=== PATIENT | female | born 1985 | race Caucasian/White ===

== ENCOUNTER 2016-12-10 16:02 | Inpatient (IN) | payer BC ==
[2016-12-10] MEDS ORDERED: Water For Irrigation,Sterile 1,000 ML Container IRR PRN (16:44)
[2016-12-10] MEDS ORDERED: Butorphanol 1 MG/ML SDV IVPUSH PRN (16:44)
[2016-12-10] MEDS ORDERED: Lidocaine 1% 50 ML MDV INJECT PRN (16:44)
[2016-12-10] MEDS ORDERED: Sodium Chloride 0.9% 10 ML Syringe FLUSH PRN (16:44)
[2016-12-10] MEDS ORDERED: Nalbuphine 10 MG/1 ML Vial IVPUSH PRN (16:44)
[2016-12-10] MEDS ORDERED: Sodium Chloride 0.9% 2.5 ML Syringe FLUSH PRN (16:44)
[2016-12-10] MEDS ORDERED: Methylergonovine 0.2 MG/1 ML Amp IM PRN (16:44)
[2016-12-10] MEDS ORDERED: Carboprost Tromethamine 250 MCG/1 ML Amp IM PRN (16:44)
[2016-12-10] MEDS ORDERED: Misoprostol 200 MCG Tab PO PRN (16:44)
[2016-12-10] MEDS ORDERED: Oxytocin/Lactated Ringers 30 UNIT/500 ML BAG IV SCH (16:45)
[2016-12-10] MEDS: Lactated Ringers 1,000 ML IV SCH ×2 (18:22→22:18)
[2016-12-10] MEDS ORDERED: fentaNYL 100 MCG/2 ML SDV ONE (22:43)
[2016-12-10] MEDS ORDERED: Ropivacaine 0.2% 2 MG/ML 20 ML SDV ONE (22:43)
--- NOTE | 2016-12-10 23:30 | PCM.PREANE ---
Preanesthetic Assessment - Anesthesia/Transfusion/Family Hx Anesthesia History: No Prior Anesthesia Family History of Anesthesia Reaction: No - Review of Systems General: No Symptoms Pulmonary: No Symptoms Cardiovascular: No Symptoms Gastrointestinal: No symptoms Neurological: No Symptoms Other: Reports: None - Physical Assessment Height: 1.6 m Weight: 86.183 kg ASA Class: 2 Mental Status: Alert & Oriented x3 Airway Class: Mallampati = 2 Dentition: Reports: Normal Dentition ROM/Head Extension: Full - Lab Values: Laboratory Last Values WBC 15.40 K/uL (4.0-11.0) H 12/10/16 16:59 RBC 4.47 M/uL (4.30-5.90) 12/10/16 16:59 Hgb 12.6 g/dL (12.0-16.0) 12/10/16 16:59 Hct 37.9 % (36.0-46.0) 12/10/16 16:59 MCV 84.8 fL (80.0-98.0) 12/10/16 16:59 MCH 28.2 pg (27.0-32.0) 12/10/16 16:59 MCHC 33.2 g/dL (31.0-37.0) 12/10/16 16:59 RDW Std Deviation 44.9 fl (28.0-62.0) 12/10/16 16:59 RDW Coeff of German 15 % (11.0-15.0) 12/10/16 16:59 Plt Count 307 K/uL (150-400) 12/10/16 16:59 MPV 9.20 fL (7.40-12.00) 12/10/16 16:59 Nucleated RBC % 0.0 /100WBC 12/10/16 16:59 Nucleated RBCs # 0 K/uL 12/10/16 16:59 Blood Type AB POSITIVE 12/10/16 16:59 Antibody Screen NEGATIVE 12/10/16 16:59 - Allergies Allergies/Adverse Reactions: Allergies Allergy/AdvReac Type Severity Reaction Status Date / Time erythromycin base Allergy Hives Verified 12/10/16 16:43 Penicillins Allergy Itching Verified 12/10/16 16:42 - Acknowledgements Anesthesia Type Planned: Epidural Pt an Appropriate Candidate for the Planned Anesthesia: Yes Alternatives and Risks of Anesthesia Discussed w Pt/Guardian: Yes Pt/Guardian Understands and Agrees with Anesthesia Plan: Yes PreAnesthesia Questionnaire - Past Health History Medical/Surgical History: Denies Medical/Surgical History Cardiovascular History: Reports: Other (See Below) Other Cardiovascular History: Treated for some kind of blood virus when she was about 6 years old. Respiratory History: Reports: Asthma Other Respiratory History: Exercise indused and last attack was 2003 Hematologic History: Reports: None (Denies any personal or family hx of bleeding or clotting problems) - SUBSTANCE USE Smoking Status *Q: Never Smoker Second Hand Smoke Exposure: No Recreational Drug Use History: No - CURRENT (IN HOUSE) MEDS Current Meds: Current Medications Butorphanol Tartrate (Stadol) 1 mg IVPUSH Q1H PRN PRN Reason: Pain Last Admin: 12/10/16 21:50 Dose: 1 mg Carboprost Tromethamine (Hemabate Ds) 250 mcg IM ASDIRECTED PRN PRN Reason: Post Hemorrhage Lactated Ringer's (Ringers, Lactated) 1,000 mls @ 150 mls/hr IV ASDIRECTED DIOR Last Admin: 12/10/16 22:18 Dose: 999 mls/hr Oxytocin/Lactated Ringer's (Pitocin In Lr 30 Units/500 Ml) 30 unit in 500 mls @ 2 mls/hr IV TITRATE DIOR; 2 MUNITS/MIN PRN Reason: Protocol Stop: 12/11/16 16:44 Last Admin: 12/10/16 21:38 Dose: 2 munits/min, 2 mls/hr Lidocaine HCl (Xylocaine 1%) 50 ml INJECT .ONCE PRN PRN Reason: Laceration repair Methylergonovine Maleate (Methergine) 0.2 mg IM ASDIRECTED PRN PRN Reason: Post Hemorrhage Misoprostol (Cytotec) 200 mcg PO .ONCE PRN PRN Reason: Post Hemorrhage Sodium Chloride (Saline Flush) 10 ml FLUSH ASDIRECTED PRN PRN Reason: Keep Vein Open Sodium Chloride (Saline Flush) 2.5 ml FLUSH ASDIRECTED PRN PRN Reason: Keep Vein Open Sterile Water (Sterile Water For Irrigation) 1,000 ml IRR ASDIRECTED PRN PRN Reason: delivery Discontinued Medications Fentanyl (Sublimaze) Confirm Administered Dose 100 mcg .ROUTE .STK-MED ONE Stop: 12/10/16 22:44 Ropivacaine/Fentanyl/NS (Fentanyl 2 Mcg-Ropiv 0.2%-Ns) Confirm Administered Dose 100 mls @ as directed .ROUTE .[employer]-MED ONE Stop: 12/10/16 22:43 Nalbuphine HCl (Nubain) 10 mg IVPUSH Q1H PRN PRN Reason: Pain (severe 7-10) Stop: 12/10/16 18:45 Ropivacaine (Naropin 0.2%) Confirm Administered Dose 20 ml .ROUTE .[employer]-MED ONE Stop: 12/10/16 22:44
[2016-12-11] MEDS: Lactated Ringers 1,000 ML IV SCH ×3 (00:15→08:00)
[2016-12-11] MEDS ORDERED: Ondansetron 4 MG/2 ML SDV IVPUSH STA (06:51)
[2016-12-11] MEDS ORDERED: Lanolin 100% Cream 7 GM Tube TOP PRN (10:22)
[2016-12-11] MEDS ORDERED: Bisacodyl 10 MG Supp RECTAL PRN (10:22)
[2016-12-11] MEDS ORDERED: Acetaminophen 500 MG Tab PO PRN (10:22)
[2016-12-11] MEDS ORDERED: Benzocaine/Menthol 20%-0.5% Spray 78 GM Cannister TOP PRN (10:22)
[2016-12-11] MEDS ORDERED: Witch Hazel Medicated Pads 40/Jar TOP PRN (10:22)
[2016-12-11] MEDS ORDERED: oxyCODONE 5 MG Tab PO PRN (10:22)
[2016-12-11] MEDS: Docusate Sodium 100 MG Cap PO PRN (11:06)
[2016-12-11] MEDS: Ibuprofen 800 MG Tab PO PRN ×2 (11:06→17:25)
--- NOTE | 2016-12-11 19:26 | PCM48HPAN ---
Post Anesthesia Note - EVALUATION WITHIN 48HRS OF ANESTHETIC Vital Signs in Normal Range: Yes Patient Participated in Evaluation: Yes Respiratory Function Stable: Yes Airway Patent: Yes Cardiovascular Function Stable: Yes Hydration Status Stable: Yes Pain Control Satisfactory: Yes Nausea and Vomiting Control Satisfactory: Yes Mental Status Recovered: Yes
--- NOTE | 2016-12-11 19:32 | OR ---
SURGEON: Jahaira Banuelos DATE OF PROCEDURE: 12/11/2016 BRIEF PREDELIVERY HISTORY: This is a 31-year-old G1, P0, presented to Labor and Delivery with complaints of leakage of fluid. On exam, the patient had copious clear vaginal fluid from vagina that was significant for gross rupture of membranes. heart tracing was significant for category 1 status and patient was genesis every 2 to 5 minutes at the time of admission. Contractions were noted to be only mild. The patient was given good 5 hours to make cervical change. IV Pitocin augmentation was instituted as the patient's contractions were not uncomfortable and pattern could be very irregular. On initial exam, the patient was noted to be approximately 2 to 3 cm dilated. The patient was started on IV Pitocin approximately 5 hours later. The patient eventually did receive her epidural for analgesia during labor. The patient eventually progressed to completely dilated status and +1 station for which nursing staff started pushing with the patient. The patient was nauseated, so the patient did receive some Zofran, rested, and eventually started maternal expulsive efforts again which were successful. PREOPERATIVE DIAGNOSES: 1. Intrauterine at 39 weeks. 2. GBS negative. 3. Premature rupture of membranes. 4. Induction of labor with IV Pitocin. POSTOPERATIVE DIAGNOSES: 1. Intrauterine at 39 weeks. 2. Delivered status. 3. Midline second-degree perineal laceration. PROCEDURE PERFORMED: 1. Spontaneous-assisted vaginal delivery. 2. Repair of midline second-degree perineal laceration. ANESTHESIA: Epidural. ESTIMATED BLOOD LOSS: 175 mL. FINDINGS: Viable female infant in vertex presentation with score of 8 and 9 at 1 and 5 minutes respectively and weight of 7 pounds 2 ounces. Normal intact placenta with 3-vessel cord. Midline second-degree perineal laceration. SPECIMEN REMOVED: Placenta. CONDITION: Postoperatively, the patient and tolerated the procedure well. COMPLICATIONS: None known. DESCRIPTION OF PROCEDURE: This female under epidural anesthesia delivered a viable female , with score of 8 and 9 at 1 and 5 minutes respectively and weight of 7 pounds 2 ounces. Delivery was via spontaneous-assisted vaginal delivery with infant in vertex presentation. Upon delivery, vertex, the neck was checked. There was no nuchal to be reduce. With gentle downward traction, the anterior shoulder was delivered followed by the body. The was bulb suctioned and on delivery, was very vigorous. The cord was doubly clamped and cut and infant was taken over to the baby warmer at maternal request as mother desired baby to be dried and cleaned prior to holding. Cord blood was collected and sent for analysis. IV Pitocin was given as uterotonic to prevent excessive maternal blood loss and to help expel the placenta. With signs of placental separation with gush of blood, the fundus was massaged, completed along with traction on the umbilical cord, a normal intact placenta with 3-vessel cord was delivered. Of note, the placenta was battledore placenta. After delivery of infant and placenta, the vagina, perineum, and rectum were explored and patient had midline second-degree perineal laceration. The patient was able to feel a little sensation on the perineum so 1% lidocaine plain was used to infiltrate the perineal and vaginal tissues. The 3-0 Vicryl suture and 2-0 Vicryl sutures were used to repair the second-degree perineal laceration. The 2-0 Vicryl suture was used to reapproximate the bulbocavernosus muscles in the midline. The 3-0 Vicryl suture was used to complete the repair of the vagina and perineum in the usual 3-layer fashion for the 2nd degree laceration. Afterwards, the lower uterine segment and vagina was cleared of all clots and debris. The patient was cleansed, pads were changed, and the bed was returned to functioning status. The patient and tolerated the procedure well. Sponge, lap, needle, and instrument counts were correct. TIERRA / LILIANA /[id number] PAULA
[2016-12-12] MEDS: Ibuprofen 800 MG Tab PO PRN (07:36)
[2016-12-12] MEDS: Docusate Sodium 100 MG Cap PO PRN (07:36)
--- NOTE | 2016-12-12 08:24 | PCM.PNPP ---
- General Info Date of Service: 12/12/16 Functional Status: Reports: pain controlled, tolerating diet, ambulating, urinating - Review of Systems General: Denies: Fever, Weakness, Fatigue Pulmonary: Denies: shortness of breath, pleuritic chest pain, cough Cardiovascular: Denies: Chest Pain, Palpitations, Dyspnea on Exertion Gastrointestinal: Denies: Abdominal pain Genitourinary: Denies: dysuria Psychiatric: Reports: no symptoms - General Info Date of Service: 12/12/16 - Patient Data Vital Signs - most recent: Last Vital Signs Temp 36.8 C 12/12/16 04:16 Pulse 84 12/12/16 04:16 Resp 15 12/12/16 04:16 BP 107/56 L 12/12/16 04:16 Pulse Ox 99 12/12/16 04:16 Weight - most recent: 86.183 kg Lab Results - last 24 hrs: Laboratory Results - last 24 hr 12/12/16 Range/Units 05:10 Hgb 10.2 L (12.0-16.0) g/dL Hct 30.9 L (36.0-46.0) % Med Orders - Current: Current Medications Acetaminophen (Tylenol Extra Strength) 500 mg PO Q4H PRN PRN Reason: Pain Benzocaine/Menthol (Dermoplast Pain Relief 20%-0.5% [place]) 78 gm TOP ASDIRECTED PRN PRN Reason: Perineal Comfort Measure Last Admin: 12/11/16 11:05 Dose: 1 applic Bisacodyl (Dulcolax) 10 mg RECTAL .ONCE PRN PRN Reason: Constipation Butorphanol Tartrate (Stadol) 1 mg IVPUSH Q1H PRN PRN Reason: Pain Last Admin: 12/10/16 21:50 Dose: 1 mg Carboprost Tromethamine (Hemabate Ds) 250 mcg IM ASDIRECTED PRN PRN Reason: Post Hemorrhage Docusate Sodium (Colace) 100 mg PO BID PRN PRN Reason: Constipation Last Admin: 12/12/16 07:36 Dose: 100 mg Emollient Ointment (Lansinoh Hpa) 0 gm TOP ASDIRECTED PRN PRN Reason: Sore Nipples Last Admin: 12/11/16 11:05 Dose: 1 applic Lactated Ringer's (Ringers, Lactated) 1,000 mls @ 150 mls/hr IV ASDIRECTED DIOR Last Admin: 12/11/16 08:00 Dose: 150 mls/hr Ibuprofen (Motrin) 800 mg PO Q6H PRN PRN Reason: Pain Last Admin: 12/12/16 07:36 Dose: 800 mg Lidocaine HCl (Xylocaine 1%) 50 ml INJECT .ONCE PRN PRN Reason: Laceration repair Last Admin: 12/11/16 09:40 Dose: 50 ml Methylergonovine Maleate (Methergine) 0.2 mg IM ASDIRECTED PRN PRN Reason: Post Hemorrhage Misoprostol (Cytotec) 200 mcg PO .ONCE PRN PRN Reason: Post Hemorrhage Oxycodone HCl (Oxycodone) 5 mg PO Q2H PRN PRN Reason: Pain Sodium Chloride (Saline Flush) 10 ml FLUSH ASDIRECTED PRN PRN Reason: Keep Vein Open Sodium Chloride (Saline Flush) 2.5 ml FLUSH ASDIRECTED PRN PRN Reason: Keep Vein Open Sterile Water (Sterile Water For Irrigation) 1,000 ml IRR ASDIRECTED PRN PRN Reason: delivery Last Admin: 12/11/16 09:40 Dose: 1,000 ml [place] (Tucks) 1 pad TOP ASDIRECTED PRN PRN Reason: comfort care Discontinued Medications Fentanyl (Sublimaze) Confirm Administered Dose 100 mcg .ROUTE .STK-MED ONE Stop: 12/10/16 22:44 Last Admin: 12/11/16 03:10 Dose: Not Given Oxytocin/Lactated Ringer's (Pitocin In Lr 30 Units/500 Ml) 30 unit in 500 mls @ 2 mls/hr IV TITRATE DIOR; 2 MUNITS/MIN PRN Reason: Protocol Stop: 12/11/16 16:44 Last Titration: 12/11/16 03:06 Dose: 4 munits/min, 4 mls/hr Ropivacaine/Fentanyl/NS (Fentanyl 2 Mcg-Ropiv 0.2%-Ns) Confirm Administered Dose 100 mls @ as directed .ROUTE .STK-MED ONE Stop: 12/10/16 22:43 Last Admin: 12/11/16 03:09 Dose: Not Given Nalbuphine HCl (Nubain) 10 mg IVPUSH Q1H PRN PRN Reason: Pain (severe 7-10) Stop: 12/10/16 18:45 Ondansetron HCl (Zofran) 4 mg IVPUSH ONETIME STA Stop: 12/11/16 06:52 Last Admin: 12/11/16 07:04 Dose: 4 mg Ropivacaine (Naropin 0.2%) Confirm Administered Dose 20 ml .ROUTE .STK-MED ONE Stop: 12/10/16 22:44 Last Admin: 12/11/16 03:10 Dose: Not Given - Infant Interaction Disposition, : [place] in Room with Family Infant Interaction: Holding Infant Feeding: Attempted ; Nursed Fair/Poor Support Person: - Recovery Exam Fundal Tone: Firm Fundal Level: At Umbilicus Fundal Placement: Midline Lochia Amount: Small Lochia Color: Rubra/Red Perineum Description: Intact, Minimal Bruising/Swelling Episiotomy/Laceration: Approximated Bladder Status: Voiding Urinary Elimination: Voided - Exam General: alert, oriented Neck: supple Lungs: Clear to auscultation, Normal respiratory effort Cardiovascular: Regular Rate, Regular Rhythm Abdomen: bowel sounds present, soft, no tenderness, no distension Psy/Mental Status: alert, normal affect, normal mood - Problem List & Annotations (1) Vaginal delivery SNOMED Code(s): 711449955 Code(s): O80 - ENCOUNTER FOR FULL-TERM UNCOMPLICATED DELIVERY Status: Acute Current Visit: Yes - Problem List Review Problem List Initiated/Reviewed/Updated: Yes - Assessment Assessment:: PPD#1 from . Minimal pain and lochia. Breast feeding well. Discharge home today. - Plan Plan:: Discharge home today. Nothing in the vagina for 6 weeks. Continue PNV while breast feeding. Can use OTC ibuprofen/tylenol as needed for pain. Instructed patient to call if she develops fever greater than 101 or bleeding through a large pad an hour. F/U with [facility] in 6 weeks.
[2016-12-12 14:48] VITALS: BP 91/50
== END 2016-12-12 12:55 | disposition home or self-care (01) | DRG 560 ==
LOC: MW.OBCHECK 16:02 → MW.OB 16:04 → MW.OBCHECK 16:44 → MW.OB 16:44 → OBSVTOIN 12-11 09:07 → MW.OB 12-11 12:15
PROVIDERS: ADMIT Obstetrics & Gynecology; ATTEND Obstetrics & Gynecology
PROC: 10E0XZZ Delivery of Products of Conception, External Approach (ICD-10-PCS; principal; 2016-12-11)
PROC: 0KQM0ZZ Repair Perineum Muscle, Open Approach (ICD-10-PCS; 2016-12-11)
PROC: 00HU33Z Insertion of Infusion Device into Spinal Canal, Percutaneous Approach (ICD-10-PCS; 2016-12-11)
PROC: 3E0R3CZ (ICD-10-PCS; 2016-12-11)
DX: O42.92 Full-term premature rupture of membranes, unspecified as to length of time between rupture and onset of labor (principal); Z3A.39 39 weeks gestation of pregnancy; Z37.0 Single live birth; O70.1 Second degree perineal laceration during delivery
CPT/HCPCS: 01967; 01996; 36415; 59025; 85014; 85018; 85027; 86850; 86900; 86901; A9270-GY; J0595; J2405; J7120

== ENCOUNTER 2017-09-07 04:21 | Emergency (ER) | payer BC ==
[2017-09-07] MEDS ORDERED: Sodium Chloride 0.9% 2.5 ML Syringe FLUSH PRN (04:47)
[2017-09-07] MEDS ORDERED: Sodium Chloride 0.9% 10 ML Syringe FLUSH PRN (04:47)
[2017-09-07] MEDS ORDERED: Alum Hydrox/Mag Hydrox/Simeth 15 ML, Metoclopramide 5 MG, Lidocaine 2% 5 ML PO ONE ×3 (04:47)
[2017-09-07] MEDS ORDERED: Sodium Chloride 0.9% 1,000 ML IV ONE (04:55)
--- NOTE | 2017-09-07 04:55 | EDM.PDOC ---
<Yang Saunders - Last Filed: 09/07/17 07:19> ED HPI GENERAL MEDICAL PROBLEM - General Chief Complaint: Chest Pain Stated Complaint: CHEST PAIN Time Seen by Provider: 09/07/17 04:35 Source of Information: Reports: Patient History Limitations: Reports: No Limitations - History of Present Illness INITIAL COMMENTS - FREE TEXT/NARRATIVE: HISTORY AND PHYSICAL: History of present illness: [32-year-old female presenting to the emergency department with a chief complaint of chest pain 1 hour with no significant past medical history. Patient states that she will was woken from sleep with substernal chest pain that was sharp in nature and lasted for approximately 1 hour. States that she also had associated left arm "tingling and numbness". Chest pain did not radiate into her jaw. She did have some associated shortness of breath as well as nausea but did not throw up. States it after approximately an hour she was able take 2 Tylenol and this pain seemed to dissipate on its own. She did feel somewhat "flushed". Patient states that she's never had anything like this happen before. On the day before she does admit to some abdominal cramping that she called "gas" that she was able to pass. She denies any significant heartburn other than when she was . She did deliver a baby approximately 9 months ago. Otherwise she is healthy in has just had a cold with runny noses and dry cough. She denies any fever, chills, malaise, diarrhea , sore throat, ear pain, abdominal pain. She has not traveled recently and denies any leg pain. ] Review of systems: As per history of present illness and below otherwise all systems reviewed and negative. Past medical history: As per history of present illness and as reviewed below otherwise noncontributory. Surgical history: As per history of present illness and as reviewed below otherwise noncontributory. Social history: No reported history of drug or alcohol abuse. Family history: As per history of present illness and as reviewed below otherwise noncontributory. Physical exam: HEENT: Atraumatic, normocephalic, pupils reactive, negative for conjunctival pallor or scleral icterus, mucous membranes moist, throat clear, neck supple, nontender, trachea midline. Lungs: Clear to auscultation, breath sounds equal bilaterally, chest nontender. Heart: S1S2, regular, negative for clicks, rubs, or JVD. Abdomen: Soft, nondistended, nontender. Negative for masses or hepatosplenomegaly. Negative for costovertebral tenderness. Pelvis: Stable nontender. Genitourinary: Deferred. Rectal: Deferred. Extremities: Atraumatic, negative for cords or calf pain. Neurovascular unremarkable. Neuro: Awake, alert, oriented. Cranial nerves II through XII unremarkable. Cerebellum unremarkable. Motor and sensory unremarkable throughout. Exam nonfocal. Diagnostics: [CBC, CMP, d-dimer, hCG, troponin, UA, EKG, chest x-ray] Therapeutics: [GI cocktail, IV normal saline, famotidine] Impression: [] Plan: [O7 [address] Bennett[address] chest Pain Score (Numeric/FACES): 4 - Related Data Allergies Allergy/AdvReac Type Severity Reaction Status Date / Time erythromycin base Allergy Hives Verified 09/07/17 04:35 Penicillins Allergy Itching Verified 09/07/17 04:35 Home Meds: Home Meds . [No Known Home Meds] 09/07/17 [History] Past Medical History - Past Health History Medical/Surgical History: Denies Medical/Surgical History Cardiovascular History: Reports: Other (See Below) Other Cardiovascular History: Treated for some kind of blood virus when she was about 6 years old. Respiratory History: Reports: Asthma Other Respiratory History: Exercise indused and last attack was 2003 Psychiatric History: Reports: None Hematologic History: Reports: None - Infectious Disease History Infectious Disease History: Reports: None Social & Family History - Family History Family Medical History: Noncontributory - Tobacco Use Smoking Status *Q: Never Smoker Second Hand Smoke Exposure: No - Caffeine Use Caffeine Use: Reports: None - Recreational Drug Use Recreational Drug Use: No Course - Vital Signs Last Recorded V/S: Last Vital Signs Temp 96.3 F 09/07/17 04:35 Pulse 84 09/07/17 04:35 Resp 14 09/07/17 04:35 BP 109/71 09/07/17 04:35 Pulse Ox 99 09/07/17 04:35 - Orders/Labs/Meds Orders: Active Orders 24 hr Category Date Time Status EKG Documentation Completion [RC] STAT Care 09/07/17 04:47 Active Abdomen Ltd [US] Stat Exams 09/07/17 07:47 Taken Abdomen Pelvis w wo Cont [CT] Stat Exams 09/07/17 06:14 Taken Chest 1V Frontal [CR] Stat Exams 09/07/17 04:47 Taken Sodium Chloride 0.9% [Saline Flush] Med 09/07/17 04:47 Active 10 ml FLUSH ASDIRECTED PRN Sodium Chloride 0.9% [Saline Flush] Med 09/07/17 04:47 Active 2.5 ml FLUSH ASDIRECTED PRN Saline Lock Insert [OM.PC] Stat Oth 09/07/17 04:47 Ordered Medication Orders Sodium Chloride (Saline Flush) 10 ml FLUSH ASDIRECTED PRN PRN Reason: Keep Vein Open Sodium Chloride (Saline Flush) 2.5 ml FLUSH ASDIRECTED PRN PRN Reason: Keep Vein Open Labs: Laboratory Tests 09/07/17 09/07/17 09/07/17 Range/Units 04:53 04:53 04:53 WBC 13.31 H (4.0-11.0) K/uL RBC 4.87 (4.30-5.90) M/uL Hgb 14.2 (12.0-16.0) g/dL Hct 41.5 (36.0-46.0) % MCV 85.2 (80.0-98.0) fL MCH 29.2 (27.0-32.0) pg MCHC 34.2 (31.0-37.0) g/dL RDW Std Deviation 40.8 (28.0-62.0) fl RDW Coeff of German 13 (11.0-15.0) % Plt Count 365 (150-400) K/uL MPV 8.60 (7.40-12.00) fL Neut % (Auto) 80.9 H (48.0-80.0) % Lymph % (Auto) 11.9 L (16.0-40.0) % [place] % (Auto) 6.2 (0.0-15.0) % Eos % (Auto) 0.5 (0.0-7.0) % Baso % (Auto) 0.5 (0.0-1.5) % Neut # (Auto) 10.8 H (1.4-5.7) K/uL Lymph # (Auto) 1.6 (0.6-2.4) K/uL [place] # (Auto) 0.8 (0.0-0.8) K/uL Eos # (Auto) 0.1 (0.0-0.7) K/uL Baso # (Auto) 0.1 (0.0-0.1) K/uL Nucleated RBC % 0.0 /100WBC Nucleated RBCs # 0 K/uL D-Dimer, Quantitative 0.35 (0.0-0.52) mg/LFEU Sodium 139 (136-146) mmol/L Potassium 3.6 (3.5-5.1) mmol/L Chloride 106 (98-110) mmol/L Carbon Dioxide 23 (21-31) mmol/L BUN 21 (6.0-23.0) mg/dL Creatinine 0.8 (0.6-1.5) mg/dL Est Cr Clr Drug Dosing 87.18 mL/min Estimated GFR (MDRD) > 60.0 ml/min Glucose 110 (60-110) mg/dL Calcium 9.6 (8.8-10.8) mg/dL Total Bilirubin 0.8 (0.1-1.5) mg/dL AST 245 H (5-40) IU/L ALT 130 H (8-54) IU/L Alkaline Phosphatase 95 (40-150) Troponin I < 0.10 (0.0-0.29) NG/ML Total Protein 7.9 (6.0-8.0) g/dL Albumin 4.3 (3.5-5.0) g/dL Globulin 3.6 H (2.0-3.5) g/dL Albumin/Globulin Ratio 1.2 L (1.3-2.8) Lipase 42 (7-80) U/L Urine Color Urine Appearance Urine pH (5.0-8.0) Ur Specific [place] (1.001-1.035) Urine Protein (NEGATIVE) mg/dL Urine Glucose (UA) (NEGATIVE) mg/dL Urine Ketones (NEGATIVE) mg/dL Urine Occult Blood (NEGATIVE) Urine Nitrite (NEGATIVE) Urine Bilirubin (NEGATIVE) Urine Urobilinogen (<2.0) EU/dL Ur Leukocyte Esterase (NEGATIVE) Urine RBC (0-2/HPF) Urine WBC (0-5/HPF) Ur Epithelial Cells (NONE-FEW) Amorphous Sediment (NEGATIVE) Urine Bacteria (NEGATIVE) Urine HCG, Qual (NEGATIVE) 09/07/17 09/07/17 Range/Units 05:10 05:10 WBC (4.0-11.0) K/uL RBC (4.30-5.90) M/uL Hgb (12.0-16.0) g/dL Hct (36.0-46.0) % MCV (80.0-98.0) fL MCH (27.0-32.0) pg MCHC (31.0-37.0) g/dL RDW Std Deviation (28.0-62.0) fl RDW Coeff of German (11.0-15.0) % Plt Count (150-400) K/uL MPV (7.40-12.00) fL Neut % (Auto) (48.0-80.0) % Lymph % (Auto) (16.0-40.0) % [place] % (Auto) (0.0-15.0) % Eos % (Auto) (0.0-7.0) % Baso % (Auto) (0.0-1.5) % Neut # (Auto) (1.4-5.7) K/uL Lymph # (Auto) (0.6-2.4) K/uL [place] # (Auto) (0.0-0.8) K/uL Eos # (Auto) (0.0-0.7) K/uL Baso # (Auto) (0.0-0.1) K/uL Nucleated RBC % /100WBC Nucleated RBCs # K/uL D-Dimer, Quantitative (0.0-0.52) mg/LFEU Sodium (136-146) mmol/L Potassium (3.5-5.1) mmol/L Chloride (98-110) mmol/L Carbon Dioxide (21-31) mmol/L BUN (6.0-23.0) mg/dL Creatinine (0.6-1.5) mg/dL Est Cr Clr Drug Dosing mL/min Estimated GFR (MDRD) ml/min Glucose (60-110) mg/dL Calcium (8.8-10.8) mg/dL Total Bilirubin (0.1-1.5) mg/dL AST (5-40) IU/L ALT (8-54) IU/L Alkaline Phosphatase (40-150) Troponin I (0.0-0.29) NG/ML Total Protein (6.0-8.0) g/dL Albumin (3.5-5.0) g/dL Globulin (2.0-3.5) g/dL Albumin/Globulin Ratio (1.3-2.8) Lipase (7-80) U/L Urine Color YELLOW Urine Appearance HAZY Urine pH 8.5 H (5.0-8.0) Ur Specific [place] 1.015 (1.001-1.035) Urine Protein 30 (NEGATIVE) mg/dL Urine Glucose (UA) NEGATIVE (NEGATIVE) mg/dL Urine Ketones NEGATIVE (NEGATIVE) mg/dL Urine Occult Blood NEGATIVE (NEGATIVE) Urine Nitrite NEGATIVE (NEGATIVE) Urine Bilirubin NEGATIVE (NEGATIVE) Urine Urobilinogen 1.0 (<2.0) EU/dL Ur Leukocyte Esterase NEGATIVE (NEGATIVE) Urine RBC 1-2 (0-2/HPF) Urine WBC 1-2 (0-5/HPF) Ur Epithelial Cells FEW (NONE-FEW) Amorphous Sediment LIGHT (NEGATIVE) Urine Bacteria FEW (NEGATIVE) Urine HCG, Qual NEGATIVE (NEGATIVE) Meds: Medications Generic Name Dose Route Start Last Admin Trade Name Freq PRN Reason Stop Dose Admin Sodium Chloride 10 ml 09/07/17 04:47 Saline Flush FLUSH ASDIRECTED PRN Keep Vein Open Sodium Chloride 2.5 ml 09/07/17 04:47 Saline Flush FLUSH ASDIRECTED PRN Keep Vein Open Discontinued Medications Generic Name Dose Route Start Last Admin Trade Name Freq PRN Reason Stop Dose Admin Al Hydroxide/Mg Hydroxide 15 0 ml 09/07/17 04:47 09/07/17 05:29 ml/ Metoclopramide HCl 5 mg/ PO 09/07/17 04:48 1 each Lidocaine HCl 5 ml ONETIME ONE Administration Famotidine 20 mg 09/07/17 04:56 09/07/17 05:28 Pepcid IVPUSH 09/07/17 04:57 20 mg ONETIME ONE Administration Sodium Chloride 1,000 mls @ 999 mls/hr 09/07/17 04:55 09/07/17 05:25 Normal Saline IV 09/07/17 05:55 999 mls/hr STAT ONE Administration Iopamidol 100 ml 09/07/17 06:40 02/15/18 06:42 Isovue Multipack-370 (76%) IVPUSH 09/07/17 06:41 100 ml ONETIME STA Administration Departure - Departure Time of Disposition: 07:19 Disposition: Home, Self-Care 01 Clinical Impression: Cholelithiasis - Discharge Information Referrals: PCP,None [Primary Care Provider] - Forms: ED Department Discharge Additional Instructions: [place] diet as discussed Return if symptoms persist or worsen Schedule appointment general surgery Dr. Crawford, his expecting your call and plans to schedule your visit for this afternoon or tomorrow morning [facility] - General Surgery Professional [address], [address] [place] [address] The following information is given to patients seen in the emergency department who are being discharged to home. This information is to outline your options for follow-up care. We provide all patients seen in our emergency department with a follow-up referral. The need for follow-up, as well as the timing and circumstances, are variable depending upon the specifics of your emergency department visit. If you don't have a primary care physician on staff, we will provide you with a referral. We always advise you to contact your personal physician following an emergency department visit to inform them of the circumstance of the visit and for follow-up with them and/or the need for any referrals to a consulting specialist. The emergency department will also refer you to a specialist when appropriate. This referral assures that you have the opportunity for follow-up care with a specialist. All of these measure are taken in an effort to provide you with optimal care, which includes your follow-up. Under all circumstances we always encourage you to contact your private physician who remains a resource for coordinating your care. When calling for follow-up care, please make the office aware that this follow-up is from your recent emergency room visit. If for any reason you are refused follow-up, please contact the [facility] emergency department at and asked to speak to the emergency department charge nurse. - My Orders Last 24 Hours: My Active Orders 09/07/17 07:47 Abdomen Ltd [US] Stat - Assessment/Plan Last 24 Hours: My Active Orders 09/07/17 07:47 Abdomen Ltd [US] Stat <Tra Hernandez - Last Filed: 09/07/17 09:03> ED HPI GENERAL MEDICAL PROBLEM - History of Present Illness INITIAL COMMENTS - FREE TEXT/NARRATIVE: Reviewed the above information and agree with above Patient was eating steak shrimp and salad with dressing on this just a couple hours prior to the symptoms developing, have taken the patient in sign out for continued management to follow CT and ultimately ordered an ultrasound of the gallbladder Patient has been pain-free since my arrival she rates 0 out of 10 however on deep palpation right upper quadrant I can reproduce some discomfort No fever nausea vomiting chills sweats no chest pain shortness breath headache dizziness palpitation no bowel or urine symptoms Gen. no acute distress whatsoever HEENT grossly within normal limits Chest clear CV regular rate and rhythm Abdomen tender on deep palpation right upper quadrant otherwise benign with good bowel sounds Extremities full range of motion strength 5 out of 5 no edema [employer] alert nonfocal Lab as below CT abdomen pelvis no acute process Ultrasound right upper quadrant significant for cholelithiasis Assessment cholelithiasis Plan Discussed with Dr. Jamil he will see the patient in clinic further management pending his visit with patient Otherwise bland diet in the interim Patient will call Dr. Jamil and schedule appointment for this afternoon or tomorrow morning for continued management ED ROS GENERAL - Review of Systems Review Of Systems: ROS reveals no pertinent complaints other than HPI. ED EXAM, GENERAL - Physical Exam Exam: See Below Departure - Departure Condition: Good
[2017-09-07] MEDS ORDERED: Famotidine 20 MG/2 ML SDV IVPUSH ONE (04:56)
[2017-09-07 05:34] LABS: CHLORIDE,CL 106 mmol/L (98-110); SODIUM,NA 139 mmol/L (136-146)
[2017-09-07] MEDS ORDERED: Iopamidol 755 MG/ML 500 ML Multipack Bottle IVPUSH STA (06:40)
--- NOTE | 2017-09-07 09:41 | CR ---
EXAM DATE: 09/07/17 PATIENT'S AGE: 32 Patient: TITO HARMON Facility: [place], [place] Site . Site : 1985 Study: XRay Chest [id number]/15/2018 5:34:41 AM Ordering Physician: Chip Soria Final Report: INDICATION: Chest pain, shortness of breath TECHNIQUE: Chest radiograph 1 view COMPARISON: None FINDINGS: Mediastinum: The heart silhouette is normal in size and morphology. The mediastinum is normal in appearance. Lungs: Both lungs are unremarkable in appearance. No sign of pleural effusion seen. No pneumothorax is identified. Bones and soft tissue: Unremarkable for age. IMPRESSION: 1. No acute cardiopulmonary disease is seen. Dictated by: Efra Goode MD @ 09/07/2017 05:38:51 (Electronic Signature) Report Signed by Proxy. [facility]
[2017-09-07 09:46] VITALS: BP 116/68
--- NOTE | 2017-09-07 09:57 | CT ---
EXAM DATE: 09/07/17 PATIENT'S AGE: 32 Patient: TITO HARMON Facility: [place], [place] Site . Site : 1985 Study: CT Abdomen/Pelvis W/ and W/O Cont [id number]/15/2018 6:42:06 AM Ordering Physician: Chip Soria Final Report: INDICATION: General abd pain, elevated white count TECHNIQUE: CT scan of the abdomen and pelvis with noncontrast and postcontrast images obtained. 100 cc of Isovue-370 given intravenously. FINDINGS: The lung bases are unremarkable. No focal abnormalities identified in the visualized portions of the liver, spleen, pancreas, and adrenal glands. 8 mm cyst in the interpolar region of the right kidney. Single nonobstructing nephroliths in both kidneys. The kidneys are otherwise unremarkable. No hydronephrosis. No obstructing uroliths. The GI tract is incompletely distended but shows no gross abnormalities. The stomach and GE junction are not well assessed. Normal appendix. No retroperitoneal, pelvic sidewall, or mesenteric adenopathy. IMPRESSION: No acute abnormalities of the abdomen or pelvis identified. Dictated by Alfa Dickerson MD @ 09/07/2017 7:06:21 AM Dictated by: Alfa Dickerson MD @ 09/07/2017 07:06:30 (Electronic Signature) Report Signed by Proxy. [facility]
--- NOTE | 2017-09-07 09:58 | US ---
EXAM DATE: 09/07/17 PATIENT'S AGE: 32 Patient: TITO HARMON Facility: [place], [place] Site . Site : 1985 Study: US Abdomen [id number]/15/2018 8:14:46 AM Ordering Physician: Chip Soria Final Report: INDICATION: PAIN COMPARISON: CT scan of the abdomen and pelvis dated 07 September 2017. FINDINGS: An abdominal ultrasound shows normal size, contour, echogenicity of the liver. No bile duct dilation with the common bile duct measuring 2 mm. Gallstones in an otherwise normal-appearing gallbladder. Negative sonographic Mata`s sign. No abnormalities identified in the visualized portions of the pancreatic head and body and right kidney. No right-sided hydronephrosis. IMPRESSION: Cholelithiasis with no sonographic evidence of cholecystitis. Dictated by Alfa Dickerson MD @ 09/07/2017 8:26:49 AM Dictated by: Alfa Dickerson MD @ 09/07/2017 08:26:57 (Electronic Signature) Report Signed by Proxy. [facility]
== END 2017-09-07 09:40 | disposition home or self-care (01) ==
LOC: MW.ED 04:21
DX: K80.20 Calculus of gallbladder without cholecystitis without obstruction (principal); Z88.0 Allergy status to penicillin; Z88.1 Allergy status to other antibiotic agents
CPT/HCPCS: 36415; 71045; 74178; 76705; 80053; 81001; 81025; 83690; 84484; 85025; 85379; 93005; 96361; 96374; 99285; A9270; J7040; Q9967; 99284

== ENCOUNTER 2019-09-07 01:48 | Inpatient (IN) | payer BC ==
[~2019-09-07 01:48] MED LIST: Butorphanol 1 MG/ML SDV IVPUSH PRN; Carboprost Tromethamine 250 MCG/1 ML Amp IM PRN; Lactated Ringers 1,000 ML IV SCH; Lidocaine 1% 50 ML MDV INJECT PRN; Methylergonovine 0.2 MG/1 ML Amp IM PRN; Misoprostol 200 MCG Tab PO PRN; Nalbuphine 10 MG/1 ML Vial IVPUSH PRN; Oxytocin/0.9 % Sodium Chloride 30 UNIT/500 ML BAG IV SCH; Sodium Chloride 0.9% 2.5 ML Syringe FLUSH PRN; Tranexamic Acid 1,000 MG in Sodium Chloride 0.9% 100 ML IV PRN; Water For Irrigation,Sterile 1,000 ML Container IRR PRN
[2019-09-07] MEDS ORDERED: Oxytocin/0.9 % Sodium Chloride 30 UNIT/500 ML BAG ONE (01:58)
[2019-09-07] MEDS ORDERED: Lidocaine 1% 50 ML MDV ONE (02:25)
[2019-09-07] MEDS ORDERED: Morphine 10 MG/ML Syringe IVPUSH ONE (02:30)
[2019-09-07] MEDS ORDERED: Morphine 2 MG/ML SYRINGE ONE (02:31)
[2019-09-07] MEDS ORDERED: Morphine 4 MG/ML Syringe ONE (02:31)
[2019-09-07] MEDS ORDERED: Sodium Chloride 0.9% 10 ML SDV IV PRN (02:32)
[2019-09-07] MEDS ORDERED: Sodium Chloride 0.9% 10 ML Syringe FLUSH PRN (02:32)
--- NOTE | 2019-09-07 03:27 | PCM.DEL ---
L & D Note - General Info Date of Service: 09/07/19 Mother's Due Date: 09/10/19 - Delivery Note Labor: Spontaneous Delivery Method: Spontaneous Vaginal Delivery-Single Nuchal Cord: None Anesthesia Type: Local Anesthetic: Lidocaine (Xylocaine) 1% Plain Laceration: 2nd Degree Suture size: 2-0 (monocryl) Placenta: Intact Cord: 3 Vessels Estimated Blood Loss: 300 Resuscitation Needed: No Score 1 min: 6 Score 5 min: 8 Delivery Comments (Free Text/Narrative):: Delivery before my arrival Live male delivered at 206am , Weight 3320g 6/8 - General Info Date of Service: 09/07/19 - Patient Data Lab Results Last 24 Hours: Laboratory Results - last 24 hr 09/07/19 09/07/19 Range/Units 02:30 02:30 WBC 12.11 H (4.0-11.0) K/uL RBC 5.12 (4.30-5.90) M/uL Hgb 13.9 (12.0-16.0) g/dL Hct 41.7 (36.0-46.0) % MCV 81.4 (80.0-98.0) fL MCH 27.1 (27.0-32.0) pg MCHC 33.3 (31.0-37.0) g/dL RDW Std Deviation 43.0 (28.0-62.0) fl RDW Coeff of German 15 (11.0-15.0) % Plt Count 308 (150-400) K/uL MPV 9.10 (7.40-12.00) fL Nucleated RBC % 0.0 /100WBC Nucleated RBCs # 0 K/uL Blood Type AB POSITIVE Antibody Screen NEGATIVE Med Orders - Current: Current Medications Butorphanol Tartrate (Stadol) 1 mg IVPUSH Q1H PRN PRN Reason: Pain Carboprost Tromethamine (Hemabate Ds) 250 mcg IM ASDIRECTED PRN PRN Reason: Post Hemorrhage Lactated Ringer's (Ringers, Lactated) 1,000 mls @ 150 mls/hr IV ASDIRECTED DIOR Oxytocin/Sodium Chloride (Oxytocin 30 Unit/500 Ml-Ns) 30 unit in 500 mls @ 999 mls/hr IV TITRATE DIOR Tranexamic Acid 1,000 mg/ (Sodium Chloride) 110 mls @ 660 mls/hr IV ONETIME PRN PRN Reason: Bleeding Lidocaine HCl (Xylocaine 1%) 50 ml INJECT ONETIME PRN PRN Reason: Laceration repair Methylergonovine Maleate (Methergine) 0.2 mg IM ASDIRECTED PRN PRN Reason: Post Hemorrhage Misoprostol (Cytotec) 200 mcg PO ONETIME PRN PRN Reason: Post Hemorrhage Nalbuphine HCl (Nubain) 10 mg IVPUSH Q1H PRN PRN Reason: Pain (severe 7-10) Sodium Chloride (Saline Flush) 10 ml FLUSH ASDIRECTED PRN PRN Reason: Keep Vein Open Sodium Chloride (Saline Flush) 2.5 ml FLUSH ASDIRECTED PRN PRN Reason: Keep Vein Open Sodium Chloride (Normal Saline) 10 ml IV ASDIRECTED PRN PRN Reason: IV Use Sterile Water (Sterile Water For Irrigation) 1,000 ml IRR ASDIRECTED PRN PRN Reason: delivery Discontinued Medications Oxytocin/Sodium Chloride (Oxytocin 30 Unit/500 Ml-Ns) Confirm Administered Dose 30 unit in 500 mls @ as directed .ROUTE .STK-MED ONE Stop: 09/07/19 01:59 Lidocaine HCl (Xylocaine 1%) Confirm Administered Dose 50 ml .ROUTE .STK-MED ONE Stop: 09/07/19 02:26 Morphine Sulfate (Morphine) Confirm Administered Dose 2 mg .ROUTE .STK-MED ONE Stop: 09/07/19 02:32 Morphine Sulfate (Morphine) Confirm Administered Dose 4 mg .ROUTE .STK-MED ONE Stop: 09/07/19 02:32 - Problem List & Annotations (1) Vaginal delivery SNOMED Code(s): 228013119 Code(s): O80 - ENCOUNTER FOR FULL-TERM UNCOMPLICATED DELIVERY Status: Acute Current Visit: No - Problem List Review Problem List Initiated/Reviewed/Updated: Yes - My Orders Last 24 Hours: My Active Orders 09/07/19 01:40 Patient Status [ADT] Routine Heart Tones [RC] CONTINUOUS Non Stress Test [RC] PER UNIT ROUTINE May Shower [RC] ASDIRECTED Notify Provider [RC] PRN Up ad Tara [RC] ASDIRECTED Vaginal Exam [RC] PRN Vital Signs [RC] PER UNIT ROUTINE Butorphanol [Stadol] 1 mg IVPUSH Q1H PRN Carboprost Tromethamine [Hemabate DS] 250 mcg IM ASDIRECTED PRN Lactated Ringers [Ringers, Lactated] 1,000 ml IV ASDIRECTED Lidocaine 1% [Xylocaine 1%] 50 ml INJECT ONETIME PRN Methylergonovine [Methergine] 0.2 mg IM ASDIRECTED PRN Nalbuphine [Nubain] 10 mg IVPUSH Q1H PRN Oxytocin/0.9 % Sodium Chloride [Oxytocin 30 Unit/500 ML-NS] 30 unit in 500 ml IV TITRATE Sodium Chloride 0.9% [Saline Flush] 2.5 ml FLUSH ASDIRECTED PRN Tranexamic Acid [Cyklokapron] 1,000 mg Sodium Chloride 0.9% [Normal Saline] 100 ml IV ONETIME Water For Irrigation,Sterile [Sterile Water for Irrigation] 1,000 ml IRR ASDIRECTED PRN miSOPROStoL [Cytotec] 200 mcg PO ONETIME PRN Scalp Electrode [WOMSER] Per Unit Routine Peripheral IV Insertion Adult [OM.PC] Routine 09/07/19 02:30 RPR (SYPHILIS SERO) W/ RFLX [REF] Routine 09/07/19 02:32 Sodium Chloride 0.9% [Normal Saline] 10 ml IV ASDIRECTED PRN Sodium Chloride 0.9% [Saline Flush] 10 ml FLUSH ASDIRECTED PRN Resuscitation Status Routine
[2019-09-07] MEDS ORDERED: oxyCODONE 5 MG Tab PO PRN (03:30)
[2019-09-07] MEDS ORDERED: Lanolin 100% Cream 7 GM Tube TOP PRN (03:30)
[2019-09-07] MEDS ORDERED: Acetaminophen 500 MG Tab PO PRN ×2 (03:30)
[2019-09-07] MEDS ORDERED: Bisacodyl 10 MG Supp RECTAL PRN (03:30)
[2019-09-07] MEDS ORDERED: Ibuprofen 400 MG Tab PO PRN (03:30)
[2019-09-07] MEDS ORDERED: Benzocaine/Menthol 20%-0.5% Spray 78 GM Cannister TOP PRN (03:30)
[2019-09-07] MEDS ORDERED: Witch Hazel Medicated Pads 40/Jar TOP PRN (03:30)
[2019-09-07] MEDS: Ibuprofen 800 MG Tab PO PRN ×3 (08:01→21:39)
--- NOTE | 2019-09-07 13:35 | OR ---
SURGEON: BARBIE BENTLEY DATE OF PROCEDURE: 09/07/2019 PREOPERATIVE DIAGNOSIS: A 34-year-old G2, P1-0-0-1 at 39 weeks and 4 days, in active labor. POSTOPERATIVE DIAGNOSIS: A 34-year-old G2, P1-0-0-1 at 39 weeks and 4 days, in active labor. PROCEDURES: 1. Normal spontaneous vaginal delivery. 2. Repair of second-degree vaginal laceration. ESTIMATED BLOOD LOSS: 300. IV FLUID: Pitocin running. NOTES AND FINDINGS: Live male delivered at 2:06 a.m. score 6 and 8. Weight is 3320 g. BRIEF HISTORY ABOUT THE PATIENT: A 34-year-old, G2, P1-0-0-1, came in complaining of contractions. She was noted to be 7 cm. The nurses informed me and before I got there, the patient had already delivered, she ruptured spontaneously and she delivered within 20 minutes of arrival. When I came in, the baby was already delivered, doing skin- to-skin with the mother. Placenta was also delivered. Hence, I inspected the perineum, noted to have a second-degree laceration and some atony, so bimanual massage was done. Pitocin was kept running and the vaginal incision and laceration were stitched with 2-0 Monocryl in a continuous locking fashion, subcutaneous to close the skin. Massage was done again. Perineum was inspected. Hemostasis was noted. The patient was left in Labor and Delivery room in stable condition. HENRY / LILIANA /[id number]
[2019-09-07] MEDS: Docusate Sodium 100 MG Cap PO PRN (21:39)
--- NOTE | 2019-09-08 07:00 | PCM.PNPP ---
- General Info Date of Service: 09/08/19 Subjective Update: 34yo P2 s/p PPD1 , breast feeding normal lochia Functional Status: Reports: Pain Controlled, Tolerating Diet, Ambulating, Urinating - Review of Systems General: Reports: No Symptoms HEENT: Reports: No Symptoms Pulmonary: Reports: No Symptoms Cardiovascular: Reports: No Symptoms Gastrointestinal: Reports: No Symptoms Genitourinary: Reports: No Symptoms Musculoskeletal: Reports: No Symptoms - General Info Date of Service: 09/08/19 - Patient Data Vital Signs - Most Recent: Last Vital Signs Temp 36.2 C 09/08/19 05:12 Pulse 54 L 09/08/19 05:12 Resp 18 09/08/19 05:12 BP 99/62 09/08/19 05:12 Pulse Ox 96 09/08/19 05:12 Weight - Most Recent: 82.554 kg Lab Results - Last 24 Hours: Laboratory Results - last 24 hr 09/08/19 Range/Units 06:25 Hgb 11.8 L (12.0-16.0) g/dL Hct 36.6 (36.0-46.0) % Med Orders - Current: Current Medications Acetaminophen (Tylenol Extra Strength) 500 mg PO Q4H PRN PRN Reason: Pain Acetaminophen (Tylenol Extra Strength) 1,000 mg PO Q4H PRN PRN Reason: Pain Benzocaine/Menthol (Dermoplast Pain Relief 20%-0.5% [place]) 78 gm TOP ASDIRECTED PRN PRN Reason: Perineal Comfort Measure Last Admin: 09/07/19 04:37 Dose: 78 gm Bisacodyl (Dulcolax) 10 mg RECTAL ONETIME PRN PRN Reason: Constipation Butorphanol Tartrate (Stadol) 1 mg IVPUSH Q1H PRN PRN Reason: Pain Carboprost Tromethamine (Hemabate Ds) 250 mcg IM ASDIRECTED PRN PRN Reason: Post Hemorrhage Docusate Sodium (Colace) 100 mg PO BID PRN PRN Reason: Constipation Last Admin: 09/07/19 21:39 Dose: 100 mg Emollient Ointment (Lansinoh Hpa) 0 gm TOP ASDIRECTED PRN PRN Reason: Sore Nipples Lactated Ringer's (Ringers, Lactated) 1,000 mls @ 150 mls/hr IV ASDIRECTED DIOR Oxytocin/Sodium Chloride (Oxytocin 30 Unit/500 Ml-Ns) 30 unit in 500 mls @ 999 mls/hr IV TITRATE DIOR Tranexamic Acid 1,000 mg/ (Sodium Chloride) 110 mls @ 660 mls/hr IV ONETIME PRN PRN Reason: Bleeding Ibuprofen (Motrin) 400 mg PO Q4H PRN PRN Reason: Pain Ibuprofen (Motrin) 800 mg PO Q6H PRN PRN Reason: Pain Last Admin: 09/07/19 21:39 Dose: 800 mg Lidocaine HCl (Xylocaine 1%) 50 ml INJECT ONETIME PRN PRN Reason: Laceration repair Methylergonovine Maleate (Methergine) 0.2 mg IM ASDIRECTED PRN PRN Reason: Post Hemorrhage Misoprostol (Cytotec) 200 mcg PO ONETIME PRN PRN Reason: Post Hemorrhage Nalbuphine HCl (Nubain) 10 mg IVPUSH Q1H PRN PRN Reason: Pain (severe 7-10) Oxycodone HCl (Oxycodone) 5 mg PO Q2H PRN PRN Reason: Pain Sodium Chloride (Saline Flush) 10 ml FLUSH ASDIRECTED PRN PRN Reason: Keep Vein Open Sodium Chloride (Saline Flush) 2.5 ml FLUSH ASDIRECTED PRN PRN Reason: Keep Vein Open Sodium Chloride (Normal Saline) 10 ml IV ASDIRECTED PRN PRN Reason: IV Use Sterile Water (Sterile Water For Irrigation) 1,000 ml IRR ASDIRECTED PRN PRN Reason: delivery Last Admin: 09/07/19 03:56 Dose: 1,000 ml [place] (Tucks) 1 pad TOP ASDIRECTED PRN PRN Reason: comfort care Last Admin: 09/07/19 04:36 Dose: 1 pad Discontinued Medications Oxytocin/Sodium Chloride (Oxytocin 30 Unit/500 Ml-Ns) Confirm Administered Dose 30 unit in 500 mls @ as directed .ROUTE .STK-MED ONE Stop: 09/07/19 01:59 Last Admin: 09/07/19 02:07 Dose: 555 mls/hr Lidocaine HCl (Xylocaine 1%) Confirm Administered Dose 50 ml .ROUTE .STK-MED ONE Stop: 09/07/19 02:26 Last Admin: 09/07/19 03:56 Dose: 50 ml Morphine Sulfate (Morphine) Confirm Administered Dose 2 mg .ROUTE .STK-MED ONE Stop: 09/07/19 02:32 Last Admin: 09/07/19 02:36 Dose: 2 mg Morphine Sulfate (Morphine) Confirm Administered Dose 4 mg .ROUTE .STK-MED ONE Stop: 09/07/19 02:32 Last Admin: 09/07/19 02:36 Dose: 4 mg Morphine Sulfate (Morphine) 6 mg IVPUSH ONETIME ONE Stop: 09/07/19 02:31 - Infant Interaction Support Person: - Recovery Exam Fundal Tone: Firm Fundal Level: 1 Fingerbreadths Below Umbilicus Fundal Placement: Midline Lochia Amount: Scant, Small Lochia Color: Rubra/Red Perineum Description: Intact, Minimal Bruising/Swelling Other Perinuem Description: 2nd degree laceration Episiotomy/Laceration: Approximated Bladder Status: Nonpalpable, Voiding Urinary Elimination: Voided - Exam General: Alert HEENT: Pupils Equal Neck: Supple Lungs: Clear to Auscultation Cardiovascular: Regular Rate, Regular Rhythm GI/Abdominal Exam: Normal Bowel Sounds Extremities: Normal Inspection Neurological: No New Focal Deficit Psy/Mental Status: Alert - Problem List & Annotations (1) Vaginal delivery SNOMED Code(s): 526994041 Code(s): O80 - ENCOUNTER FOR FULL-TERM UNCOMPLICATED DELIVERY Status: Acute Current Visit: No - Problem List Review Problem List Initiated/Reviewed/Updated: Yes - Assessment Assessment:: 34yo P2 s/p , PPD1 , stable - Plan Plan:: Routine Discharge home
[2019-09-08] MEDS: Docusate Sodium 100 MG Cap PO PRN (08:45)
[2019-09-08] MEDS: Ibuprofen 800 MG Tab PO PRN (08:45)
[2019-09-08 09:00] VITALS: BP 108/58; PULSE 70
== END 2019-09-08 14:44 | disposition home or self-care (01) | DRG 560 ==
LOC: MW.OBCHECK 01:48 → MW.OB 01:51 → MW.OBCHECK 02:18 → MW.OB 02:19 → OBSVTOIN 02:19 → MW.OB 04:51
PROVIDERS: ADMIT Obstetrics & Gynecology; ATTEND Obstetrics & Gynecology
PROC: 10E0XZZ Delivery of Products of Conception, External Approach (ICD-10-PCS; principal; 2019-09-07)
PROC: 0KQM0ZZ Repair Perineum Muscle, Open Approach (ICD-10-PCS; 2019-09-07)
DX: O70.1 Second degree perineal laceration during delivery (principal); Z37.0 Single live birth; Z3A.39 39 weeks gestation of pregnancy
CPT/HCPCS: 36415; 59409; 85014; 85018; 85027; 86592; 86850; 86900; 86901; 87070; A9270-GY; J2001; J2270; J2590